=== PATIENT | male | born 1970 | race Caucasian/White ===

== ENCOUNTER 2020-01-20 07:25 | Outpatient (CLI) | payer OTHER, SELFPAY ==
--- NOTE | 2020-02-16 13:22 | WPDHOMESLEEP ---
Sleep Study - Home Unattended Date of Study: 01/20/20 Ordering Provider: Carlitos Bowles MD Interpreting Physician: Emeli Ahumada MD Home Sleep Study Type: Apnea Link Air Height: 1.91 m Weight: 106.594 kg Body Mass Index: 29.3 [place]: 15 Reason for Sleep Study loud snoring, daytime drowsiness Sleep History Kevin Hdz is a 49 minutes year old man with a history of frequent loud snoring that causes others to complain and excessive daytime sleepiness. He has tried a nasal device to help snoring which has not worked. He wakes up throughout the night. he frequently has trouble sleeping in the has a cold. He does not gasp for breath at night and does not have witnessed breathing issues reported to a by others. He rarely sweats excessively at night. He does not notice his heart pounding her regularly at night. Occasionally falls asleep during the day, occasionally involuntarily at times, even while driving. He does not fall asleep during physical effort. He does not have loss of muscle tone was strong emotion. He occasionally has excessive daytime problems due to sleepiness. He works as a speech and language therapist. He does not feel paralyzed on waking or falling asleep. He rarely has vivid dreamlike scenes upon awakening or falling asleep. He has never for a to go to sleep. He rarely has nightmares, rarely remembers his dreams frequently has racing thoughts. He occasionally feel sad depressed or anxious. He does not have muscular tension or notices parts of his body jerking. He isn't kick at night. He denies crawling and aching feelings in his legs at night or leg pain at night. He does the morning jaw pain. He occasionally grinds his teeth at night. He rarely is bothered by pain during the day. He never is awakened by pain at night. Occasionally wakes up feeling stiff in the morning was sore achy muscles on rare occasion. Rarely wakes up with pain in the neck and spine. Takes antacids regularly. Bedtime is 11:00 p.m. falling asleep within 20-30 minutes waking once at night to use the bathroom. While awake he remains awake for 20-30 minutes. He wakes in the morning at 6:00 a.m.. He estimates between 6 and 7 hours of sleep at night. On the weekends he goes to bed later, 12 midnight. He wakes at 8:00 am on weekends, slightly later. His sleep is not refreshing, rarely awakens feeling refreshed. He does not take naps. Short naps are not refreshing. He is usually drowsy in the morning for 2 hours or longer. He feels better in the morning compared to other times of day. Habits: Quit tobacco 18 years ago. No caffeine. Alcohol 3-6 beverages on a weekend. FOR[facility], [facility] Past Medical History Medical History (Updated 02/16/20 @ 13:31 by Emeli Ahumada MD) Essential hypertension Gastroesophageal reflux disease Mixed hyperlipidemia Seasonal allergies Subclinical hypothyroidism Social History Social History Smoking end date: 04/01/01 Alcohol intake: current Medications Home Medications Medication Instructions Recorded Confirmed Type multivitamin 1 tablet PO DAILY 02/25/19 11/03/19 History atorvastatin 40 mg tablet 40 mg PO DAILY #90 tablet 11/03/19 11/03/19 Rx amlodipine 5 mg tablet See Rx Instructions .ROUTE 12/28/19 Rx .COMPLEX #90 tablet losartan 100 mg tablet See Rx Instructions .ROUTE 12/28/19 Rx .COMPLEX #90 unspecified Sleep Procedure This test was performed using 4 channel monitoring including respiratory effort channel, snoring channel, heart rate channel, and oxygen saturation channel. This study was scored using [facility] guidelines. Sleep Architecture Not applicable for home sleep test. Respiratory Analysis The recording time was 6 hours 35 minutes. The evaluation time was 6 hours 12 minutes. The apnea-hypopnea index is elevated at 13. He had 51 apneas and 94% the apneas 58 were obstructive. He had 2 apneas which were centr
[2020-02-16 13:35] VITALS: BMI 29.3
== END 2020-01-20 07:26 | disposition home or self-care (01) ==
LOC: ANHCSM 07:26
PROVIDERS: PCP Internal Medicine; Visit Provider Internal Medicine
DX: G47.33 Obstructive sleep apnea (adult) (pediatric) (principal)
CPT/HCPCS: 95806